=== PATIENT | female | born 1955 | race Caucasian/White ===

== ENCOUNTER 2017-12-14 18:41 | Observation (INO) | payer MEDICAID ==
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
[2017-12-14] MEDS ORDERED: ONDANSETRON 4 MG/2 ML VIAL IVP ONE (18:45)
[2017-12-14 19:12] LABS: PLATELET COUNT 343 10^3/uL (150-400)
[2017-12-14 19:20] LABS: INR 1.07 (0.83-1.16); PROTIME(PATIENT) 14.1 SEC (12.0-15.0)
[2017-12-14] MEDS ORDERED: LORazepam 2 MG/ML INJ ONE (19:33)
[2017-12-14] MEDS ORDERED: KETAMINE 200 MG/20 ML VIAL ONE (19:42)
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
[2017-12-14] MEDS ORDERED: NALOXONE HCL 0.4 MG/ML INJ IVP PRN (20:56)
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
[2017-12-15] MEDS: FAMOTIDINE 20 MG/NACL 50 ML IV SCH ×3 (00:07→20:04)
[2017-12-15] MEDS: IBUPROFEN 600 MG TAB PO PRN ×3 (00:07→20:06)
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
[2017-12-15] MEDS: ONDANSETRON DISINTEGRATING 4 MG TAB PO PRN ×3 (07:58→20:04)
--- NOTE | 2017-12-15 10:22 | TRAUMAPNT ---
Trauma Tertiary Progress Note New Findings: none Assessment/Plan: keep in house today for post concussive complaints, pt visiting from out of town , little support or superviosn here.. will reconsider later today if feeeling better Subjective: co headache, sleepiness. pain at le antecubital iv site, mild neck pain. Objective: Vital Signs Temp Pulse Resp BP Pulse Ox 36.5 C 66 20 112/67 94 12/15/17 07:50 12/15/17 07:50 12/15/17 07:50 12/15/17 07:50 12/15/17 07:50 12/14/17 12/15/17 12/16/17 05:59 05:59 05:59 Intake Total 2700 Balance 2700 PT 14.1 SEC (12.0-15.0) 12/14/17 18:41 INR 1.07 (0.83-1.16) 12/14/17 18:41 - C-Spine Clearance Cervical Spine Cleared: Yes Provider who Cleared Cervical Spine: ayla Physical Exam - Physical Exam General Appearance: alert, no apparent distress EENT: PERRL/EOMI, pharynx normal Neck: non-tender, full range of motion Respiratory: chest non-tender, lungs clear Cardiac/Chest: regular rate, rhythm Abdomen: non-tender, soft Extremities: normal range of motion, non-tender Neuro/Psych: no motor/sensory deficits, alert, normal mood/affect, oriented x 3
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
[2017-12-15] MEDS: HYDROCODONE/APAP 5/325 TAB PO PRN ×2 (16:01→20:06)
[2017-12-16] MEDS: IBUPROFEN 600 MG TAB PO PRN (05:51)
[2017-12-16] MEDS: ONDANSETRON DISINTEGRATING 4 MG TAB PO PRN (05:55)
[2017-12-16 07:33] VITALS: BP 139/74
--- NOTE | 2017-12-16 11:12 | SOAPPROG ---
SOAP Progress Note Assessment/Plan: Assessment: doing well/ afebrile neuro intact chest clear cor rr abd soft extrem multiple abrasions and contusions Plan:home/ office 5days for staple removal 12/16/17 11:10 Objective: Vital Signs Temp Pulse Resp BP Pulse Ox 36.9 C 81 16 139/74 H 94 12/16/17 07:30 12/16/17 07:30 12/16/17 07:30 12/16/17 07:30 12/16/17 07:30 12/15/17 12/16/17 12/17/17 05:59 05:59 05:59 Intake Total 2700 150 Balance 2700 150 PT 14.1 SEC (12.0-15.0) 12/14/17 18:41 INR 1.07 (0.83-1.16) 12/14/17 18:41 ICD10 Worksheet Patient Problems: Problems Problem Status Onset Brain bleed Acute Concussion Acute Contusion of left upper limb Acute Laceration of scalp Acute TBI (traumatic brain injury) Acute
== END 2017-12-16 11:58 | disposition home or self-care (01) ==
LOC: F2N 21:17 → F3N 12-15 14:38
PROVIDERS: ADMIT Surgery; ATTEND Surgery
PROC: 0HQ0XZZ Repair Scalp Skin, External Approach (ICD-10-PCS; principal; 2017-12-14)
DX: S06.6X1A Traumatic subarachnoid hemorrhage with loss of consciousness of 30 minutes or less, initial encounter (principal); S01.01XA Laceration without foreign body of scalp, initial encounter; S40.022A Contusion of left upper arm, initial encounter; V01.00XA Pedestrian on foot injured in collision with pedal cycle in nontraffic accident, initial encounter; Y93.89 Activity, other specified; Y92.9 Unspecified place or not applicable
CPT/HCPCS: 13121; 70450; 72125; 92523; 96374; 97161; 97165; 97535; 99285; G0378; J2060; J2405